=== PATIENT | male | born 1945 | race Caucasian/White ===

== ENCOUNTER 2017-01-18 14:25 | Inpatient (IN) | payer OTHER ==
[~2017-01-18] VITALS: Ht 177.8 cm; Wt 105.8 kg
--- NOTE | ~2017-01-18 | CN ---
Consultation Report [facility] [address] [facility] [place]. [address] NAME: ARMANDO ALBARRAN : 47 STATUS : ADM IN [facility]#: [id number] AGE: 71 ADM/REG DATE : 01/18/17 MR#: [id number] REPORT SERV DATE: 01/22/17 DICTATED BY: DATE: REPORT STATUS : Draft TRANSCRIBED BY: MODL DATE: 01/21/17 CONSULTATION NOTE DATE OF CONSULTATION: 01/21/2017 REASON FOR CONSULTATION: Atrial fibrillation and tachycardia-bradycardia syndrome. BRIEF HPI: This is a 71-year-old male with past medical historysignificant for coronary disease status post three-vessel bypass done over 10 years ago with PCI done in 2005, who presented to the emergency department with complaints of chest pain with shortness of breath for about three days. The patient was found to be in atrial fibrillation with rapid ventricular response. He is not on any rate-controlling medications as an outpatient. The patient was placed on a diltiazem drip for rate control. He was also placed on digoxin for further rate control. The patient had initial troponin of 0.78. He had ECG that had no significant ischemic findings. The patient states that he has had some fatigue over the last several months. The patient currently denies chest pain. He denies shortness of breath. He denies PND. Denies orthopnea. The patient has had no syncope. He denies nausea or vomiting. He has had no fevers, chills, or sweats. PAST MEDICAL HISTORY: 1. Coronary artery disease. 2. CABG. 3. PCI in 2005. 4. Hypertension. 5. Renal artery stenosis with renal artery stent. 6. Type 2 diabetes mellitus. 7. Hyperlipidemia. 8. Peripheral vascular disease. FAMILY HISTORY: Significant family history of coronary artery disease. SOCIAL HISTORY: The patient denies tobacco use. Denies alcohol use. Denies illegal drug use. REVIEW OF SYSTEMS: All other systems reviewed and are negative. PHYSICAL EXAMINATION: VITAL SIGNS: The patient has a temperature of 97.3, heart rate is 52 beats per minute, blood pressure 163/77. He is saturating 96% on room air. GENERAL: He is in no acute distress. HEENT: He is normocephalic, atraumatic. NEURO: Grossly intact. RESPIRATORY: Clear to auscultation bilaterally. Consultation Report [facility] [address] [place]. [address] NAME: ARMANDO ALBARRAN : 47 STATUS : ADM IN PAT#: [id number] AGE: 71 ADM/REG DATE : 01/18/17 MR#: [id number] REPORT SERV DATE: 01/22/17 DICTATED BY: DATE: REPORT STATUS : Draft TRANSCRIBED BY: MODL DATE: 01/21/17 CARDIOVASCULAR: Bradycardic, regular, with no murmurs, rubs, or gallops appreciated. ABDOMEN: Soft with normal bowel sounds. EXTREMITIES: No lower extremity edema. He is not cyanotic. He is not cold to touch. Telemetry demonstrates sinus rhythm, sinus bradycardia, and PVCs. EKG: Initial EKG was atrial fibrillation with controlled ventricular response, right bundle branch block, and left anterior fascicular block. ASSESSMENT: 1. Paroxysmal atrial fibrillation. 2. Tachycardia-bradycardia syndrome. 3. Coronary artery disease. 4. Hypertension. 5. Hyperlipidemia. 6. Type 2 diabetes mellitus. PLAN: 1. For the patient's atrial fibrillation, he is currently back in sinus rhythm. Would consider rhythm control with this patient with amiodarone possibly as first choice versus possible sotalol. Given the patient's coronary artery disease, would not use flecainide, would not use propafenone for rhythm control. 2. For his rate control and for his coronary artery disease, the patient would benefit from being on a beta-judy therapy, although, given his significant bradycardia with symptoms during his bradycardia, this makes it difficult. Given his symptomatic bradycardia along with need for beta-judy therapy for his coronary artery disease, the patient meets criteria for permanent pacemaker implant. I have discussed risks, benefits with the patient. He understands. We will proceed. We will have permanent pacemaker implant during this hospitalization. 3. For the patient's coronary artery disease, continue his medications as above. He has a troponin increase prior related, although, he is going to have a heart catheterization in the morning. We will follow up after his heart catheterization. 4. For his hypertension, BP elevated. Would benefit from further blood pressure control, managed by the primary team, can add beta-judy therapy once the patient receives permanent pacemaker implant. 5. For his hyperlipidemia, continue statin. 6. For his type 2 diabetes mellitus, the patient will be on insulin sliding scale while hospitalized. [facility]/MODL Kirit Booker MD Consultation Report [place] [id number] [address] NAME: ARMANDO ALBARRAN : 47 STATUS : ADM IN PAT#: [id number] AGE: 71 ADM/REG DATE : 01/18/17 MR#: [id number] REPORT SERV DATE: 01/22/17 DICTATED BY: DATE: REPORT STATUS : Draft TRANSCRIBED BY: MODL DATE: 01/21/17 / [id number] CC: Lamine Capps M.D., F.A.C.C.
--- NOTE | ~2017-01-18 | PRECARD ---
H&P [facility] [address] [place]. [address] NAME: ARMANDO ALBARRAN : 47 STATUS : ADM IN [facility]#: [id number] AGE: 71 ADM/REG DATE : 01/18/17 MR#: [id number] REPORT SERV DATE: 01/19/17 DICTATED BY: LAMINE WOOD DATE: 01/19/17 REPORT STATUS : Draft TRANSCRIBED BY: MODJovon DATE: 01/19/17 DATE OF ADMISSION: 01/18/2017 HISTORY OF PRESENT ILLNESS: The patient is a 71-year-old white male, who is status post 3- vessel bypass surgery over a decade ago. The patient subsequently had coronary stenting in 2005. The patient presented to the emergency room complaining of oppressive chest discomfort and shortness of breath for 3 days. He was found to be in atrial fibrillation with a rapid ventricular response. He was placed on IV Cardizem with partial rate control. He has subsequently had a troponin level of 0.78. There are no acute changes on his electrocardiogram however. PAST MEDICAL HISTORY: Remarkable for coronary artery disease with remote bypass surgery and subsequent stenting, hypertension with previous history of renal artery stenting, type 2 diabetes, hyperlipidemia, and peripheral vascular stents. SOCIAL HISTORY: The patient does not smoke. FAMILY HISTORY: Positive for coronary disease. REVIEW OF SYSTEMS: The patient denies cough, wheeze, sputum production, vomiting, diarrhea, or dysuria. PHYSICAL EXAMINATION: VITAL SIGNS: Blood pressure is 106/53, heart rate is 87 and regular, and respirations 16 and unlabored. HEENT: ENT exam is unremarkable. NECK: Shows no jugular venous distention with good carotid upstroke. CHEST: Clear. CARDIOVASCULAR: The PMI is lateral to the mid clavicular line. S1 is variable. S2 is narrowly split. No gallop is present. ABDOMEN: Soft and nontender with normal bowel sounds. EXTREMITIES: Show no cyanosis, clubbing, or edema. Pulses are diminished bilaterally. SKIN: Warm and dry with no pallor or icterus. NEURO/PSYCH: The patient is oriented x3 with appropriate affect. DIAGNOSTIC DATA: EKG shows atrial fibrillation with right bundle-branch block and a probable inferior scar. IMPRESSION: 1. Paroxysmal atrial fibrillation. 2. Subendocardial myocardial infarction. 3. Renovascular hypertension. 4. Type 2 diabetes. 5. Hyperlipidemia. 6. History of peripheral vascular disease with lower extremity stenting. H&P [address] [address] NAME: ARMANDO ALBARRAN : 47 STATUS : ADM IN PAT#: [id number] AGE: 71 ADM/REG DATE : 01/18/17 MR#: [id number] REPORT SERV DATE: 01/19/17 DICTATED BY: LAMINE WOOD DATE: 01/19/17 REPORT STATUS : Draft TRANSCRIBED BY: ROBERT DATE: 01/19/17 PLAN: 1. Rate control with Cardizem and digoxin. 2. Heparin for now and begin Eliquis after cardiac catheterization. 3. Cardiac catheterization when heart rate controlled. TAMI/ROBERT Lamine Wood M.D., FransiscoCGeovanniC. / [id number] CC: Lamine Wood M.D., Noah
--- NOTE | ~2017-01-18 | DS ---
Discharge Summary [facility] [address] [facility] [place]. [address] NAME: ARMANDO ALBARRAN : 47 STATUS : DIS IN PAT#: [id number] AGE: 71 ADM/REG DATE : 01/18/17 MR#: [id number] REPORT SERV DATE: 01/31/17 DICTATED BY: LAMINE CAPPS DATE: 01/31/17 REPORT STATUS : Draft TRANSCRIBED BY: ROBERT DATE: 01/31/17 Data Collection from hospitalization DISCHARGE DIAGNOSES: 1. Paroxysmal atrial tachycardia/acute coronary syndrome. 2. Coronary artery disease. 3. Hypertension. 4. Type 2 diabetes mellitus. 5. Hyperlipidemia. 6. Peripheral vascular disease. 7. History of renal artery stenosis with renal artery stent. CONSULTATIONS: Kirit Booker M.D. PROCEDURES: 1. Cardiac catheterization, 01/22/2017. 2. Permanent pacemaker implantation, 01/23/2017. DISCHARGE MEDICATIONS: 1. Zyloprim 100 mg twice a day. 2. Norvasc 5 mg at bedtime. 3. Aspirin 325 mg at bedtime. 4. Lipitor 40 mg daily. 5. Coreg 6.25 mg twice a day. 6. Keflex 500 mg every 12 hours. 7. Lanoxin 0.25 mg daily. 8. Lantus 16 units subcutaneously twice a day. 9. Synthroid 25 mcg every morning. 10.Centrum tablets one tablet every morning. 11.Fish oil 1200 mg twice a day. 12.Percocet 10/325 mg one tablet every 6 hours as needed. 13.Effient 10 mg at bedtime. 14.Blue-Emu ointment apply to the hands. 15.Diovan/HCT one tablet at bedtime. He was instructed not to continue simvastatin or Lasix. CONDITION AT DISCHARGE: Stable. DISPOSITION: The patient was discharged home on a low-cholesterol, 1800-calorie diabetic diet with no concentrated carbohydrates and activities as instructed. He would follow up with Dr. Kirit Booker on 01/31/2017. He would follow up with Dr. Capps on 02/20/2017. HOSPITAL COURSE: This is a 71-year-old man who is status post three vessel bypass surgery over a decade ago. He subsequently had coronary stenting in 2005. He presented to the emergency room complaining of oppressive chest discomfort and shortness of breath for about three days. He was found to be in atrial fibrillation with rapid ventricular response. He Discharge Summary [place] [id number] [facility] [place]. [address] NAME: ARMANDO ALBARRAN : 47 STATUS : DIS IN PAT#: [id number] AGE: 71 ADM/REG DATE : 01/18/17 MR#: [id number] REPORT SERV DATE: 01/31/17 DICTATED BY: LAMINE CAPPS DATE: 01/31/17 REPORT STATUS : Draft TRANSCRIBED BY: ROBERT DATE: 01/31/17 was placed on IV Cardizem with partial rate control. He subsequently had a troponin level of 0.78. There were no acute changes on his electrocardiogram however. He was admitted to the hospital at this time for further evaluation and treatment. Upon admission, his EKG revealed atrial fibrillation with right bundle-branch block and probable inferior scar. He was felt to have had a subendocardial myocardial infarction. Rate control was started with digoxin and Cardizem. Heparin was started. We would begin Eliquis after a cardiac catheterization. It was felt that he should undergo a cardiac catheterization when his heart rate was controlled. On 01/20/2017 he had some vague chest pain that morning. His lungs were clear. He was back in a sinus rhythm after receiving IV digoxin load. Maintenance digoxin was going to begin. Troponin was going to be checked as well as BMP and BNP. On 01/21/2017, he was in no distress. Heart rate was in the 50s, and he had several episodes of chest pain since admission. The patient had been in atrial fibrillation-sinus bradycardia. He was seen by Dr. Kirit Booker regarding atrial fibrillation and tachycardia- bradycardia syndrome. He was not on any rate-controlling medication as an outpatient. He had been placed on a diltiazem drip for rate control. He had also been placed on digoxin for further rate control. The patient said he had some fatigue over the past several months. He currently denied any chest pain or shortness of breath. Telemetry demonstrated sinus rhythm, sinus bradycardia, and PVCs. The patient was currently back in a sinus rhythm. He felt we would consider rhythm control with this patient with amiodarone possibly as first choice versus possible sotalol. Given the patient's coronary artery disease we would not use flecainide and we would not use propafenone for rhythm control. It was felt that the patient would benefit from being on beta-judy therapy, although given his significant bradycardia with symptoms during his bradycardia this makes it difficult. Given his symptomatic bradycardia along with the need for beta-judy therapy for his coronary artery disease, the patient meets criteria for permanent pacemaker implantation. This was discussed with the patient and we would proceed with permanent pacemaker implant during this hospitalization. He was going to undergo a cardiac catheterization. Blood pressure was elevated. It was felt that he would benefit from further blood pressure control which would be managed by the Primary Team. Beta-judy therapy could be added once the patient received permanent pacemaker implantation. Statin agent was continued. He remained on sliding scale insulin. The following day, he was taken to the cardiac laboratory phlebotomist where he underwent the above-mentioned procedure. He tolerated this well, and there were no complications. The patient has an ejection fraction of 55%. Plans were being made to proceed with permanent pacemaker implantation. On 01/23/2017, the patient was taken to the Electrophysiology Laboratory by Dr. Kirit Booker where he underwent the above-mentioned procedure. He tolerated this well. There were no complications. Pacemaker check was performed. Discharge instructions were given. Due to his improved and stable condition, he was discharged home with the above-stated instructions. Information collected by: Nidia Valles I submit the above information as my discharge summary. Discharge Summary [address] [address] NAME: ARMANDO ALBARRAN : 47 STATUS : DIS IN PAT#: [id number] AGE: 71 ADM/REG DATE : 01/18/17 MR#: [id number] REPORT SERV DATE: 01/31/17 DICTATED BY: LAMINE CAPPS DATE: 01/31/17 REPORT STATUS : Draft TRANSCRIBED BY: MODJovon DATE: 01/31/17 TG/ROBERT Lamine Capps M.D., Noah / [id number] CC: Lamine Capps M.D., KpEstela. Kirit Booker MD
--- NOTE | ~2017-01-18 | OP ---
Record Of Operation [facility] [address] [place]. [address] NAME: ARMANDO ALBARRAN : 47 STATUS : ADM IN PAT#: [id number] AGE: 71 ADM/REG DATE : 01/18/17 MR#: [id number] REPORT SERV DATE: 01/22/17 DICTATED BY: ROXIE CAPPS DATE: 01/22/17 REPORT STATUS : Draft TRANSCRIBED BY: MODJovon DATE: 01/22/17 DATE OF PROCEDURE: 01/22/2017 CARDIAC CATHETERIZATION REPORT INDICATION FOR THIS PROCEDURE: Acute coronary syndrome. PROCEDURE IN DETAIL: The patient was prepped and draped in usual sterile fashion. Adequate anesthesia was obtained over the right femoral vessels using lidocaine infiltration. Moderate IV sedation was administered. Using the Seldinger technique, 6-Central African sheath was placed in the right femoral artery. A 6 FL4 coronary catheter was advanced to the left coronary ostium. Left coronary injections were performed in the [place] and ALDRICH views. Left coronary catheter was exchanged for a 6 FR4 coronary catheter which was used to inject the [place] right coronary artery and the saphenous vein grafts. The right coronary catheter was exchanged for a 6-[place] internal mammary artery catheter that was used to inject the left internal mammary artery graft. The internal mammary artery catheter was exchanged for a 6- [place] pigtail catheter, which was advanced in the left ventricular cavity. Pressures were measured across the aortic valve and a left ventricular angiogram was obtained in the ALDRICH projection. Pigtail catheter was removed over a guidewire and sheath left in place. There were no apparent complications. TOTAL CONTRAST USED: 140 mL. TOTAL RADIATION EXPOSURE: 1140 mGy. ESTIMATED BLOOD LOSS: No significant blood loss occurred. RESULTS: 1. Pressures: The left ventricular end-diastolic pressure was 18 mmHg, and no gradient was present across the aortic valve. 2. Left ventricular angiogram: Left ventricle showed inferobasilar hypokinesis with global ejection fraction of 55%. 3. Coronary arteriograms: The left main coronary artery is normal. Left anterior descending coronary artery is totally occluded proximally. Left circumflex coronary artery has patent stents proximally and no obstructive disease. The right coronary artery is totally occluded proximally. 4. Grafts: The internal mammary artery graft to the LAD is patent without stenosis. The saphenous vein grafts are both occluded proximally. IMPRESSION: 1. Three-vessel coronary artery disease. 2. Patent internal mammary artery graft LAD. 3. Patent stents in left circumflex coronary artery. 4. Chronic total occlusion of right coronary artery, which fills distally via septal script manager collaterals from the LAD. Record Of Operation [facility] [place]. [address] NAME: ARMANDO ALBARRAN : 47 STATUS : ADM IN PAT#: [id number] AGE: 71 ADM/REG DATE : 01/18/17 MR#: [id number] REPORT SERV DATE: 01/22/17 DICTATED BY: ROXIE CAPPS DATE: 01/22/17 REPORT STATUS : Draft TRANSCRIBED BY: ROBERT DATE: 01/22/17 PLAN: Continue medical therapy. SS/ROBERT Roxie Capps M.D., Noah / [id number] CC: Roxie Capps M.D., Noah
--- NOTE | ~2017-01-18 | OP ---
Record Of Operation [facility] [address] [place]. [address] NAME: ARMANDO ALBARRAN : 47 STATUS : ADM IN PAT#: [id number] AGE: 71 ADM/REG DATE : 01/18/17 MR#: [id number] REPORT SERV DATE: 01/23/17 DICTATED BY: DATE: REPORT STATUS : Draft TRANSCRIBED BY: MODL DATE: 01/23/17 DATE OF PROCEDURE: 01/23/2017 PROCEDURE TYPE: Permanent pacemaker implantation. PREPROCEDURE DIAGNOSIS: Sick sinus syndrome with symptomatic bradycardia. POSTPROCEDURE DIAGNOSIS: Sick sinus syndrome with symptomatic bradycardia. DETAILS: This is a 71-year-old male with past medical history significant for coronary artery disease and sick sinus syndrome with bradycardia, who presents for permanent pacemaker implantation. The patient was brought to the Electrophysiology Lab. Consent was seen and signed in the chart. The patient was moved to the operating table. At this time, team time-out was performed. All team members identified themselves, correct patient name, date of , site of procedure and type of procedure were all confirmed. The patient's cleaned and draped in the usual sterile fashion. He was placed under anesthesia by the Anesthesiology Team. He received 2 g of Ancef prior to skin incision. His left upper chest was then exposed using 1% lidocaine for local anesthetic. An incision was made roughly one to two fingerbreadths below his left clavicle, left prepectoral pocket was then created upon completion of the left prepectoral pocket. Antibiotic-soaked sponges placed in the pocket. Left axillary vein accessed and then attempted using modified Seldinger technique. A left upper extremity venogram was done to confirm left upper extremity venous anatomy. After venogram was complete, access was obtained and two J-wires were placed in the left axillary vein under fluoroscopy guidance and seen to drop below the diaphragm. A 7-Mozambican introducer sheath was placed over a first J-wire in the left axillary vein. The dilator wire removed from body. A NuPathe MRI IS-1 model #7742, serial #[id number] right ventricular lead was placed through 7-Mozambican sheath under fluoroscopic guidance positioning into the right ventricle. It was then positioned in the right ventricular outflow tract. The lead was then withdrawal and allowed to fall lower one-third of the right ventricle. It was directed to the interventricular septum, was confirmed on the [place] projection. The screw was then deployed. Significant current joule was seen on the PSA. The lead was tested with numbers as follows; sensed R-waves were 12.3 mV, threshold 0.3 V 0.5 milliseconds, impedance was 924 ohms. The 7-Mozambican sheath was removed by peel-away from the right ventricular lead. Right ventricular lead was then anchored to base pocket with Ethibond suture x2. A second 7-Mozambican introducer sheath was placed over the remaining J wire in the left axillary vein. The dilator wire removed from body. A NuPathe MRI IS-1 model #7741 serial #[id number] right atrial lead was Record Of [address] [address] NAME: ARMANDO ALBARRAN : 47 STATUS : ADM IN PAT#: [id number] AGE: 71 ADM/REG DATE : 01/18/17 MR#: [id number] REPORT SERV DATE: 01/23/17 DICTATED BY: DATE: REPORT STATUS : Draft TRANSCRIBED BY: MODL DATE: 01/23/17 placed through the 7-Mozambican sheath under fluoroscopy guidance and positioned into the right atrium and it was then positioned into the right atrial appendage. The screw was then deployed. Significant current joule seen on the PSA. The lead was tested and numbers as follows; sensed P waves were 2.1 mV, threshold 0.3 V 0.5 millisecond, impedance was 850 ohms. The 7-Mozambican sheath was removed by peel-away from the right atrial lead, right atrial lead was then anchored to base pocket with Ethibond suture x2. The antibiotic-soaked sponge was removed from pocket. Pocket was irrigated with antibiotic solution. Generator was then brought to the bedside. It is a wufoo MRI DR IS-1 model #L311 serial #[id number]. It was connected to the right atrial and right ventricular lead. It was then placed in the left prepectoral pocket. The pocket was then closed in the usual fashion with 2-0 Vicryl suture for primary two layers, followed by 4-0 Vicryl stitch to the remaining skin layers. Steri-Strip was placed over the incision. Sterile dressing was placed on top. COMPLICATIONS: None. ESTIMATED BLOOD LOSS: Less than 10 mL. ASSESSMENT: 1. Sick sinus syndrome with symptomatic bradycardia, status post dual-chamber permanent pacemaker implantation. 2. This is an MRI-compatible permanent pacemaker. MRIs may be obtain six weeks after implantation. PLAN: 1. Bedrest x2 hours, up and out of bed after 2 hours. 2. Telemetry monitoring. 3. Chest x-ray, PA and lateral, now. 4. Arm swings for 24 hours. 5. Keflex 500 mg p.o. b.i.d. for next three days. 6. Outpatient wound check will be scheduled in one to two weeks. BSC/MODL Kirit Booker MD / [id number] CC: Lamine Capps M.D., F.A.C.C.
[~2017-01-18 14:25] MED LIST: ASAEC PO; CAP50 PO; EFFIENT10 PO; L20 PO; LANTUS SC; LOP25 PO; Z300 PO; ZOCOR20 PO
[2017-01-18 15:51] LABS: BASOPHILS 0.4 %; BASOPHILS ABSOLUTE 0.04 10/3/uL (0.0-0.16); EOSINOPHILS 1.4 %; EOSINOPHILS ABSOLUTE 0.15 10/3/uL (0.0-0.53); IMMATURE GRANULOCYTES 0.3 %; IMMATURE GRANULOCYTES ABSOLUTE 0.03 10/3/uL (0.0-0.11); LYMPHOCYTES ABSOLUTE 2.16 10/3/uL (0.67-4.30); MEAN CORPUS HGB CONC 34.6 g/dL (32.0-36.0); MEAN CORPUSCULAR HEMOGLOB 29.1 pg (26.0-34.0); MEAN CORPUSCULAR VOLUME 83.9 fL (80-100); MEAN PLATELET VOLUME 11.8 fL (9.2-13.0); MONOCYTES 6.8 %; MONOCYTES ABSOLUTE 0.73 10/3/uL (0.21-1.20); NEUTROPHILS 71.1 %; RBC DISTRIBUTION WIDTH 13.7 % (12.0-16.0); RED CELL COUNT 6.09 10/6/uL (4.7-6.1)
[2017-01-18 15:53] LABS: ER CBC TAT 0 Hrs 07 Mins; HEMATOCRIT 51.1 % (40.0-51.0); HEMOGLOBIN 17.7 g/dL (13.6-17.8); MANUAL DIFF NO %; PLATELET COUNT 286 10/3/uL (150-400); WHITE BLOOD CELLS 10.8 10/3/uL (4.5-10.5)
[2017-01-18 16:00] LABS: PARTIAL THROMBO TIME 27.1 SEC (22.5-37.2); PROTIME (NOT ORD) 13.3 SEC (12.0-14.5)
[2017-01-18 16:07] LABS: CALCIUM, SERUM 9.5 MG/DL (8.5-10.4); CHLORIDE, SERUM 104 MMOL/L (96-112); CO2 (CARBON DIOXIDE) 28 MMOL/L (24-34); CREATININE 1.71 MG/DL (0.70-1.30); GFR AFRICAN AMERICAN 46 ML/MIN (>=60); GFR NON AFRICAN AMERICAN 40 ML/MIN (>=60); POTASSIUM, SERUM 4.7 MMOL/L (3.5-5.3); SODIUM, SERUM 139 MMOL/L (135-148)
[2017-01-18 16:10] LABS: BUN (BLOOD UREA NITROGEN) 28 MG/DL (6-23); CHEST PAIN PROFILE TAT 0 Hrs 24 Mins; GLUCOSE, SERUM 162 MG/DL (60-99); TROPONIN I 0.63 NG/ML (<0.05)
[2017-01-18] MEDS ORDERED: Z100 PO (17:06)
[2017-01-18] MEDS ORDERED: EFFIENT10 PO (17:07)
[2017-01-18] MEDS ORDERED: NORV5 PO (17:07)
[2017-01-18] MEDS ORDERED: ASA5GR PO (17:08)
[2017-01-18] MEDS ORDERED: SYN.025B PO (17:09)
[2017-01-18] MEDS ORDERED: L20 PO (17:09)
[2017-01-18] MEDS ORDERED: ZOCOR20 PO (17:09)
[2017-01-18] MEDS ORDERED: DIOVAN HC2 PO (17:10)
[2017-01-18] MEDS ORDERED: LANTUSCART SC (17:11)
[2017-01-18] MEDS ORDERED: FISH OIL1200 MG PO (17:11)
[2017-01-18] MEDS ORDERED: CENTRUM PO (17:11)
[2017-01-18] MEDS ORDERED: BLU EMU TOP (17:13)
[2017-01-18 19:04] LABS: ALBUMIN 3.8 G/DL (3.5-5.0); ALKALINE PHOSPHATASE 94 U/L (45-117); DIRECT BILIRUBIN 0.1 MG/DL (0.0-0.4); FREE T4 1.05 NG/DL (0.76-1.46); INDIRECT BILIRUBIN(NOT ORDER) 0.6 MG/DL (0.1-0.9); SGPT(ALT) 44 U/L (5-65); TOTAL BILIRUBIN 0.7 MG/DL (0-1.2)
[2017-01-18 19:08] LABS: SGOT(AST) 36 U/L (5-40)
[2017-01-21 06:51] LABS: BUN (BLOOD UREA NITROGEN) 42 MG/DL (6-23); CALCIUM, SERUM 8.8 MG/DL (8.5-10.4); CHLORIDE, SERUM 102 MMOL/L (96-112); CO2 (CARBON DIOXIDE) 25 MMOL/L (24-34); CREATININE 1.35 MG/DL (0.70-1.30); GFR AFRICAN AMERICAN 61 ML/MIN (>=60); GFR NON AFRICAN AMERICAN 53 ML/MIN (>=60); GLUCOSE, SERUM 150 MG/DL (60-99); POTASSIUM, SERUM 4.1 MMOL/L (3.5-5.3); SODIUM, SERUM 136 MMOL/L (135-148)
[2017-01-21 06:52] LABS: TROPONIN I 0.24 NG/ML (<0.05)
[2017-01-22 05:49] LABS: BASOPHILS 0.6 %; BASOPHILS ABSOLUTE 0.05 10/3/uL (0.0-0.16); EOSINOPHILS 7.5 %; EOSINOPHILS ABSOLUTE 0.61 10/3/uL (0.0-0.53); HEMOGLOBIN 14.2 g/dL (13.6-17.8); IMMATURE GRANULOCYTES 0.5 %; IMMATURE GRANULOCYTES ABSOLUTE 0.04 10/3/uL (0.0-0.11); LYMPHOCYTES 32.6 %; LYMPHOCYTES ABSOLUTE 2.64 10/3/uL (0.67-4.30); MEAN CORPUS HGB CONC 33.6 g/dL (32.0-36.0); MEAN CORPUSCULAR HEMOGLOB 28.2 pg (26.0-34.0); MEAN CORPUSCULAR VOLUME 83.9 fL (80-100); MONOCYTES 9.6 %; MONOCYTES ABSOLUTE 0.78 10/3/uL (0.21-1.20); NEUTROPHILS 49.2 %; NEUTROPHILS ABSOLUTE 3.99 10/3/uL (2.02-8.40); PLATELET COUNT 233 10/3/uL (150-400); RBC DISTRIBUTION WIDTH 13.9 % (12.0-16.0); RED CELL COUNT 5.03 10/6/uL (4.7-6.1); WHITE BLOOD CELLS 8.1 10/3/uL (4.5-10.5)
[2017-01-22 05:50] LABS: HEMATOCRIT 42.2 % (40.0-51.0); MANUAL DIFF NO %
[2017-01-22 05:56] LABS: PROTIME (NOT ORD) 13.4 SEC (12.0-14.5)
[2017-01-22 05:57] LABS: PARTIAL THROMBO TIME 71.6 SEC (22.5-37.2)
[2017-01-22 06:09] LABS: ALBUMIN 3.1 G/DL (3.5-5.0); CALCIUM, SERUM 8.9 MG/DL (8.5-10.4); CHLORIDE, SERUM 106 MMOL/L (96-112); CHOL/HDL RATIO(NOT ORDER) 5.9 (0-5); CHOLESTEROL 148 MG/DL (< 200); CO2 (CARBON DIOXIDE) 22 MMOL/L (24-34); CREATININE 1.11 MG/DL (0.70-1.30); GFR AFRICAN AMERICAN 78 ML/MIN (>=60); GFR NON AFRICAN AMERICAN 67 ML/MIN (>=60); GLUCOSE, SERUM 146 MG/DL (60-99); HDL CHOLESTEROL 25 MG/DL (> 39); NON-HDL CHOLESTEROL 123 MG/DL (< 160); PHOSPHORUS, SERUM 3.5 MG/DL (2.5-4.5); POTASSIUM, SERUM 4.2 MMOL/L (3.5-5.3); SODIUM, SERUM 137 MMOL/L (135-148); TRIGLYCERIDE 472 MG/DL (< 150)
[2017-01-22 06:13] LABS: BUN (BLOOD UREA NITROGEN) 34 MG/DL (6-23)
[2017-01-23 04:27] LABS: BASOPHILS 0.5 %; BASOPHILS ABSOLUTE 0.04 10/3/uL (0.0-0.16); EOSINOPHILS 6.5 %; EOSINOPHILS ABSOLUTE 0.52 10/3/uL (0.0-0.53); HEMATOCRIT 39.6 % (40.0-51.0); HEMOGLOBIN 13.3 g/dL (13.6-17.8); IMMATURE GRANULOCYTES 0.4 %; IMMATURE GRANULOCYTES ABSOLUTE 0.03 10/3/uL (0.0-0.11); LYMPHOCYTES 29.7 %; LYMPHOCYTES ABSOLUTE 2.39 10/3/uL (0.67-4.30); MEAN CORPUS HGB CONC 33.6 g/dL (32.0-36.0); MEAN CORPUSCULAR HEMOGLOB 28.3 pg (26.0-34.0); MEAN CORPUSCULAR VOLUME 84.3 fL (80-100); MEAN PLATELET VOLUME 10.9 fL (9.2-13.0); MONOCYTES 8.6 %; MONOCYTES ABSOLUTE 0.69 10/3/uL (0.21-1.20); NEUTROPHILS 54.3 %; NEUTROPHILS ABSOLUTE 4.38 10/3/uL (2.02-8.40); PLATELET COUNT 240 10/3/uL (150-400); RBC DISTRIBUTION WIDTH 13.8 % (12.0-16.0); WHITE BLOOD CELLS 8.1 10/3/uL (4.5-10.5)
[2017-01-23 04:28] LABS: MANUAL DIFF NO %
[2017-01-23 04:34] LABS: INTERNATIONAL NORMAL RATI 1.1 UNITS (-); PARTIAL THROMBO TIME 30.1 SEC (22.5-37.2); PROTIME (NOT ORD) 13.9 SEC (12.0-14.5)
[2017-01-23 04:43] LABS: ALBUMIN 3.2 G/DL (3.5-5.0); CHLORIDE, SERUM 107 MMOL/L (96-112); CO2 (CARBON DIOXIDE) 23 MMOL/L (24-34); CREATININE 1.13 MG/DL (0.70-1.30); GFR AFRICAN AMERICAN 76 ML/MIN (>=60); GFR NON AFRICAN AMERICAN 65 ML/MIN (>=60); GLOBULIN 3.3 G/DL (2.5-4.1); GLUCOSE, SERUM 121 MG/DL (60-99); PHOSPHORUS, SERUM 3.6 MG/DL (2.5-4.5); POTASSIUM, SERUM 4.2 MMOL/L (3.5-5.3); SGOT(AST) 18 U/L (5-40); SGPT(ALT) 28 U/L (5-65); SODIUM, SERUM 140 MMOL/L (135-148); TOTAL BILIRUBIN 0.6 MG/DL (0-1.2); TOTAL PROTEIN 6.5 G/DL (6.0-8.5)
[2017-01-23 04:44] LABS: ALKALINE PHOSPHATASE 78 U/L (45-117); BUN (BLOOD UREA NITROGEN) 26 MG/DL (6-23)
[2017-01-23] MEDS ORDERED: LAN25 PO (11:24)
[2017-01-23] MEDS ORDERED: LIPITOR40 PO (11:31)
[2017-01-23] MEDS ORDERED: PERCOCET 10/3251 TAB PO (11:32)
[2017-01-23] MEDS ORDERED: K500 PO (11:33)
[2017-01-23] MEDS ORDERED: COREG6 PO (11:34)
== END 2017-01-23 16:26 | disposition home or self-care (01) | DRG 243 ==
LOC: ER 14:25 → 7NO 17:14
PROVIDERS: Emergency Medicine; Internal Medicine; Internal Medicine Interventional Cardiology
PROC: 4A023N7 Measurement of Cardiac Sampling and Pressure, Left Heart, Percutaneous Approach (ICD-10-PCS; principal; 2017-01-22)
PROC: B2111ZZ Fluoroscopy of Multiple Coronary Arteries using Low Osmolar Contrast (ICD-10-PCS; 2017-01-22)
PROC: B2131ZZ Fluoroscopy of Multiple Coronary Artery Bypass Grafts using Low Osmolar Contrast (ICD-10-PCS; 2017-01-22)
PROC: B2181ZZ Fluoroscopy of Left Internal Mammary Bypass Graft using Low Osmolar Contrast (ICD-10-PCS; 2017-01-22)
PROC: B2151ZZ Fluoroscopy of Left Heart using Low Osmolar Contrast (ICD-10-PCS; 2017-01-22)
PROC: 0JH606Z Insertion of Pacemaker, Dual Chamber into Chest Subcutaneous Tissue and Fascia, Open Approach (ICD-10-PCS; 2017-01-23)
PROC: 02H63JZ Insertion of Pacemaker Lead into Right Atrium, Percutaneous Approach (ICD-10-PCS; 2017-01-23)
PROC: 02HK3JZ Insertion of Pacemaker Lead into Right Ventricle, Percutaneous Approach (ICD-10-PCS; 2017-01-23)
DX: I25.110 Atherosclerotic heart disease of native coronary artery with unstable angina pectoris (principal); I47.1 Supraventricular tachycardia; I25.82 Chronic total occlusion of coronary artery; I15.0 Renovascular hypertension; I48.0 Paroxysmal atrial fibrillation; E11.9 Type 2 diabetes mellitus without complications; E78.5 Hyperlipidemia, unspecified; I73.9 Peripheral vascular disease, unspecified; Z95.1 Presence of aortocoronary bypass graft; Z95.5 Presence of coronary angioplasty implant and graft
CPT/HCPCS: 33208; 71010; 80048; 80053; 80061; 80069; 80076; 80162; 82962; 83735; 83880; 84100; 84439; 84443; 84484; 85025; 85610; 85730; 93005; 93306; 93459; 99152; 99153; 99291; A9270-GY; C1769; C1785; C1892; C1898; J0690; J1160; J1170; J1200; J2250; J2405; J3010; Q9967